=== PATIENT | female | born 1995 | race African-American/Black ===

== ENCOUNTER → 2018-01-27 | Outpatient (CLI) | payer MEDICAID | LOC: OD 16:47 | PROVIDERS: ATTEND Advanced Practice Midwife | DX: Z34.83 Encounter for supervision of other normal pregnancy, third trimester (principal); Z11.59 Encounter for screening for other viral diseases; Z11.3 Encounter for screening for infections with a predominantly sexual mode of transmission; Z11.4 Encounter for screening for human immunodeficiency virus [HIV] | CPT/HCPCS: 36415; 86592; 86701 ==